=== PATIENT | female | born 2000 | race Caucasian/White ===

== ENCOUNTER 2019-04-28 10:10 | Emergency (ER) | payer MEDICAID, OTHER ==
[~2019-04-28] VITALS: Ht 175.3 cm; Wt 91.0 kg
[2019-04-28 10:31] VITALS: BP 134/81
[2019-04-28 12:10] LABS: CLARITY,URINE CLOUDY (Clear); COLOR,URINE YELLOW (Yellow); GLUCOSE, URINE NEGATIVE (Neg); KETONES,URINE NEGATIVE (Neg); LEUKOCYTE ESTERASE ,URINE MODERATE (Neg); NITRITES, URINE POSITIVE (Neg); OCCULT BLOOD,URINE LARGE (Neg); PH,URINE 5.5 (4.8-8.0); PROTEIN,URINE 100 mg/dl (Neg); UROBILINOGEN,URINE 0.2 E.U/dL (0.2-1.0)
[2019-04-28 12:14] LABS: UA COLLECTION TYPE CLN CATCH MIDSTREAM
[2019-04-28] MEDS ORDERED: METH500T PO (12:15)
[2019-04-28] MEDS ORDERED: ketorolac tromethamine 15mg/ml inj. IM ONE (12:15)
[2019-04-28] MEDS ORDERED: IBUP-1985 PO (12:15)
[2019-04-28] MEDS ORDERED: orphenadrine citrate 60mg/2ml inj. IM ONE (12:15)
[2019-04-28 12:17] LABS: RBC,URINE 50-100 /HPF (0-2); WBC,URINE TNTC /HPF (0-4)
[2019-04-28 12:18] LABS: BACTERIA,URINE 4+ /HPF (Neg); MUCUS STRANDS FEW /LPF (Neg); RENAL CELLS, URINE FEW /HPF; SQUAMOUS EPITHELIAL CELL,UR MODERATE /LPF (FEW); TRANSITIONAL EPI CELLS,URINE FEW /HPF
--- NOTE | 2019-04-28 13:08 | NUR ---
Pt feelling better, pain is 3/10. Rx pain meds for dc
== END 2019-04-28 13:10 | disposition home or self-care (01) ==
LOC: ER 10:11
DX: M54.5 Low back pain (principal); Z79.899 Other long term (current) drug therapy
CPT/HCPCS: 81001; 87077; 87088; 87186; 96372; 99283; J1885; J2360